=== PATIENT | male | born 1965 | race Caucasian/White ===

== ENCOUNTER 2017-01-07 07:35 | Inpatient (IN) | payer OTHER ==
[~2017-01-07] VITALS: Ht 172.7 cm; Wt 111.4 kg
[~2017-01-07 07:35] MED LIST: CeFAZolin 1 GM/DEXTROSE 50 ML IV ONE; CeFAZolin 2 GM/DEXTROSE 50 ML IV ONE; IBUP-2070 PO; RINGERS SOLUTION,LACTATED 1,000 ML IV ONE; SODIUM CHLORIDE 0.9% 1,000 ML IV ONE
[2017-01-07] MEDS ORDERED: RINGERS SOLUTION,LACTATED 1,000 ML IV ONE ×2 (07:40→11:32)
[2017-01-07 08:15] LABS: BASOPHILS # (AUTO) 0.03 K/uL (0.00-0.20); BASOPHILS % (AUTO) 0.3 % (0.0-2.0); EOSINOPHILS # (AUTO) 0.16 K/uL (0.00-0.70); EOSINOPHILS % (AUTO) 1.56 % (1.0-6.0); HEMATOCRIT 44.6 % (41-53); HEMOGLOBIN 15.3 g/dL (13.5-17.5); LYMPHOCYTES # (AUTO) 2.1 K/uL (1.0-4.8); LYMPHOCYTES % (AUTO) 19.9 % (22.0-44.0); MEAN CORPUSCULAR HEMOGLOBIN 31.6 pg (26.0-34.0); MEAN CORPUSCULAR HGB CONC 34.3 G/dL (31.0-37.0); MEAN CORPUSCULAR VOLUME 92 fL (80-100); MONOCYTES # (AUTO) 0.9 K/uL (0.1-1.0); MONOCYTES % (AUTO) 9.1 % (2.0-9.0); NEUTROPHILS # (AUTO) 7.1 K/uL (1.8-7.7); NEUTROPHILS % (AUTO) 69.2 % (40.0-70.0); PLATELET COUNT (AUTO) 251 K/uL (150-450); RED BLOOD CELL COUNT(AUTO) 4.84 MIL/uL (4.50-5.90); RED CELL DISTRIBUTION WIDTH 13.7 % (11.5-14.5); WHITE BLOOD COUNT (AUTO) 10.3 K/uL (4.5-11.0)
[2017-01-07] MEDS ORDERED: CeFAZolin 1 GM/DEXTROSE 50 ML IV ONE (08:23)
[2017-01-07 08:24] LABS: ANION GAP 7 mmol/L (8-16); CALCIUM, TOTAL 8.4 mg/dL (8.8-10.5); CARBON DIOXIDE 25 mmol/L (22-29); CHLORIDE 106 mmol/L (98-107); CREATININE 0.89 mg/dL (0.60-1.30); GLOMERULAR FILTR. RATE CALC > 60 mL/min (>60); POTASSIUM 4.1 mmol/L (3.5-5.1); SODIUM SERUM 138 mmol/L (136-145); UREA NITROGEN, BLOOD 11 mg/dL (7-18)
[2017-01-07 08:31] LABS: PROTHROMBIN TIME 10.1 SEC (9.4-11.6)
[2017-01-07] MEDS ORDERED: ACETAMINOPHEN 1000 MG/ISO-OSM 100 ML IV ONE (09:15)
[2017-01-07] MEDS ORDERED: BENZOCAINE/MENTHOL LOZENGE [8 LOZENGES/PACKET] PO PRN (10:00)
[2017-01-07] MEDS ORDERED: DiphenhydrAMINE HCL 50 MG/ML VIAL IVP PRN (10:00)
[2017-01-07] MEDS ORDERED: ONDANSETRON HCL 4 MG/2 ML VIAL IVP PRN ×2 (10:00→10:30)
[2017-01-07] MEDS ORDERED: ZOLPIDEM TARTRATE 10 MG TABLET PO PRN (10:00)
[2017-01-07] MEDS ORDERED: MEPERIDINE-PF 25 MG/ML SYRINGE IVP PRN (10:30)
[2017-01-07] MEDS ORDERED: HYDROmorphone 2 MG/ML SYRINGE IVP PRN (10:30)
[2017-01-07] MEDS ORDERED: FentaNYL CITRATE-PF 100 MCG/2 ML VIAL IVP PRN (10:30)
[2017-01-07] MEDS ORDERED: PROMETHAZINE HCL 25 MG/ML VIAL IM PRN (10:30)
[2017-01-07] MEDS ORDERED: MORPHINE SULFATE 4 MG/ML SYRINGE IVP ONE (12:00)
[2017-01-07] MEDS ORDERED: DEXAMETHASONE SOD PHOS 4 MG/ML VIAL IVP ONE (12:00)
[2017-01-07] MEDS ORDERED: ONDANSETRON HCL 4 MG/2 ML VIAL IVP ONE (12:00)
[2017-01-07] MEDS ORDERED: PROPOFOL 1% 20 ML VIAL IVP ONE (12:00)
[2017-01-07] MEDS ORDERED: FentaNYL CITRATE-PF 100 MCG/2 ML VIAL IV ONE (12:00)
[2017-01-07] MEDS ORDERED: LIDOCAINE HCL/PF 2% 5 ML VIAL INJ ONE (12:00)
[2017-01-07] MEDS ORDERED: 0.9% SODIUM CHLORIDE 10 ML VIAL IVP ONE (12:00)
[2017-01-07] MEDS ORDERED: METOPROLOL TARTRATE 5 MG/5 ML VIAL IVP ONE (12:00)
[2017-01-07] MEDS ORDERED: KETAMINE HCL 50 MG/ML 10 ML VIAL IVP ONE (12:00)
[2017-01-07] MEDS ORDERED: EPHEDrine SULFATE 50 MG/ML VIAL IM ONE (12:00)
[2017-01-07] MEDS ORDERED: MIDAZOLAM HCL 2 MG/2 ML VIAL IVP ONE (12:00)
[2017-01-07] MEDS ORDERED: ROCURONIUM BROMIDE 10 MG/ML 5 ML VIAL IVP ONE (12:00)
[2017-01-07] MEDS ORDERED: SUCCINYLCHOLINE CHLORIDE 20 MG/ML 10 ML VIAL IVP ONE (12:00)
[2017-01-07 13:50] VITALS: BP 150/95
[2017-01-07] MEDS: HYDROmorphone 2 MG/ML SYRINGE IVP PRN ×3 (14:39→23:46)
[2017-01-07 16:07] VITALS: BP 156/102
[2017-01-07] MEDS: ACETAMINOPHEN 1000 MG/ISO-OSM 100 ML IV SCH ×2 (16:14→21:43)
[2017-01-07 16:19] VITALS: BP 143/75
[2017-01-07] MEDS: CYCLOBENZAPRINE HCL 10 MG TABLET PO PRN (16:35)
[2017-01-07] MEDS: DOCUSATE SODIUM 100 MG CAPSULE PO SCH (19:46)
[2017-01-07 20:00] VITALS: BP 164/108
[2017-01-07] MEDS: OXYGEN THERAPY IH SCH (20:00)
[2017-01-07 21:48] VITALS: BP_SYST 14; BP_SYST 141; BP_DIAS 85
[2017-01-07 23:50] VITALS: BP 142/85
[2017-01-08] MEDS: ACETAMINOPHEN 1000 MG/ISO-OSM 100 ML IV SCH (04:06)
[2017-01-08] MEDS: CYCLOBENZAPRINE HCL 10 MG TABLET PO PRN (04:06)
[2017-01-08 04:13] VITALS: BP 130/80
[2017-01-08] MEDS ORDERED: INFLUENZA VIRUS VACCINE QVS 2017-18 (3YR+)/PF 60 MCG/0.5 ML SYRINGE IM ONE (04:45)
[2017-01-08] MEDS: HYDROmorphone 2 MG/ML SYRINGE IVP PRN (05:46)
[2017-01-08 08:00] VITALS: BP 154/94
[2017-01-08] MEDS: OXYGEN THERAPY IH SCH (08:00)
[2017-01-08] MEDS: DOCUSATE SODIUM 100 MG CAPSULE PO SCH (08:35)
[2017-01-08] MEDS ORDERED: OxyCODONE HCL/ACETAMINOPHEN 10-325 MG TABLET PO PRN (10:00)
[2017-01-08 12:00] VITALS: BP 152/90
== END 2017-01-08 12:50 | disposition home or self-care (01) | DRG 472 ==
LOC: 4E 07:35
PROVIDERS: ADMIT Orthopaedic Surgery Orthopaedic Surgery of the Spine; ATTEND Orthopaedic Surgery Orthopaedic Surgery of the Spine
PROC: 03QY0ZZ Repair Upper Artery, Open Approach (ICD-10-PCS; 2017-01-07)
PROC: 0RB30ZZ Excision of Cervical Vertebral Disc, Open Approach (ICD-10-PCS; 2017-01-07)
PROC: 0RG10A0 Fusion of Cervical Vertebral Joint with Interbody Fusion Device, Anterior Approach, Anterior Column, Open Approach (ICD-10-PCS; principal; 2017-01-07 10:13)
DX: M48.02 Spinal stenosis, cervical region (principal); I97.620 Postprocedural hemorrhage of a circulatory system organ or structure following other procedure; E66.3 Overweight; R58 Hemorrhage, not elsewhere classified; M54.12 Radiculopathy, cervical region; G47.33 Obstructive sleep apnea (adult) (pediatric); Z68.37 Body mass index [BMI] 37.0-37.9, adult; Y83.8 Other surgical procedures as the cause of abnormal reaction of the patient, or of later complication, without mention of misadventure at the time of the procedure; Y92.89 Other specified places as the place of occurrence of the external cause
CPT/HCPCS: 87081; 93005; 94760; 97161; 97165; 97535; C1713; J0131; J0330; J0690; J1100; J1170; J2250; J2270; J2405; J2704; J3010; J3490; J7120

== ENCOUNTER 2017-02-15 06:26 | Inpatient (IN) | payer OTHER ==
[~2017-02-15] VITALS: Ht 172.7 cm; Wt 107.7 kg
[~2017-02-15 06:26] MED LIST changes: -CeFAZolin 1 GM/DEXTROSE 50 ML IV ONE; -IBUP-2070 PO; -SODIUM CHLORIDE 0.9% 1,000 ML IV ONE
[2017-02-15] MEDS ORDERED: HYDROmorphone 2 MG/ML SYRINGE IVP PRN (06:30)
[2017-02-15] MEDS ORDERED: ZOLPIDEM TARTRATE 5 MG TABLET PO PRN (06:30)
[2017-02-15] MEDS ORDERED: MEPERIDINE-PF 25 MG/ML SYRINGE IVP PRN (06:30)
[2017-02-15] MEDS ORDERED: PROMETHAZINE HCL 25 MG/ML VIAL IM PRN (06:30)
[2017-02-15] MEDS ORDERED: BUPIVACAINE LIPOSOME/PF 1.3%-13.3MG/ML SUSPENSION 10 ML VIAL INJ ONE (06:30)
[2017-02-15] MEDS ORDERED: ONDANSETRON HCL 4 MG/2 ML VIAL IVP PRN (06:30)
[2017-02-15] MEDS ORDERED: FentaNYL CITRATE-PF 100 MCG/2 ML VIAL IVP PRN (06:30)
[2017-02-15] MEDS ORDERED: CYCLOBENZAPRINE HCL 10 MG TABLET PO PRN (06:30)
[2017-02-15] MEDS ORDERED: ACETAMINOPHEN 1000 MG/ISO-OSM 100 ML IV ONE (06:45)
[2017-02-15 06:49] LABS: BASOPHILS # (AUTO) 0.09 K/uL (0.00-0.20); EOSINOPHILS # (AUTO) 0.15 K/uL (0.00-0.70); EOSINOPHILS % (AUTO) 1.78 % (1.0-6.0); HEMATOCRIT 46.5 % (41-53); HEMOGLOBIN 15.6 g/dL (13.5-17.5); LYMPHOCYTES # (AUTO) 2.2 K/uL (1.0-4.8); LYMPHOCYTES % (AUTO) 25.8 % (22.0-44.0); MEAN CORPUSCULAR HGB CONC 33.5 G/dL (31.0-37.0); MEAN CORPUSCULAR VOLUME 92 fL (80-100); MONOCYTES # (AUTO) 0.8 K/uL (0.1-1.0); MONOCYTES % (AUTO) 9.7 % (2.0-9.0); NEUTROPHILS # (AUTO) 5.3 K/uL (1.8-7.7); NEUTROPHILS % (AUTO) 61.7 % (40.0-70.0); PLATELET COUNT (AUTO) 279 K/uL (150-450); RED BLOOD CELL COUNT(AUTO) 5.03 MIL/uL (4.50-5.90); RED CELL DISTRIBUTION WIDTH 14.1 % (11.5-14.5); WHITE BLOOD COUNT (AUTO) 8.6 K/uL (4.5-11.0)
[2017-02-15] MEDS: ACETAMINOPHEN 1000 MG/ISO-OSM 100 ML IV SCH ×3 (06:49→18:43)
[2017-02-15 07:00] LABS: PROTHROMBIN TIME 10.3 SEC (9.4-11.6)
[2017-02-15] MEDS ORDERED: CeFAZolin 2 GM/DEXTROSE 50 ML IV ONE (07:00)
[2017-02-15 07:07] LABS: ANION GAP 8 mmol/L (8-16); CALCIUM, TOTAL 8.9 mg/dL (8.8-10.5); CARBON DIOXIDE 27 mmol/L (22-29); CHLORIDE 104 mmol/L (98-107); CREATININE 0.91 mg/dL (0.60-1.30); GLOMERULAR FILTR. RATE CALC > 60 mL/min (>60); POTASSIUM 4.1 mmol/L (3.5-5.1); SODIUM SERUM 139 mmol/L (136-145); UREA NITROGEN, BLOOD 14 mg/dL (7-18)
[2017-02-15 07:13] LABS: ALANINE AMINOTRANSFERASE 35 U/L (12-78); ALBUMIN 3.8 g/dL (3.4-5.0); ASPARTATE AMINOTRANSFERASE 16 U/L (15-37); BILIRUBIN,TOTAL 0.7 mg/dL (0.1-1.0)
[2017-02-15] MEDS ORDERED: DiphenhydrAMINE HCL 50 MG/ML VIAL IVP PRN (07:45)
[2017-02-15] MEDS ORDERED: DEXAMETHASONE SOD PHOS 4 MG/ML VIAL IVP PRN (07:45)
[2017-02-15] MEDS ORDERED: ZOLPIDEM TARTRATE 10 MG TABLET PO PRN (07:45)
[2017-02-15] MEDS ORDERED: BENZOCAINE/MENTHOL LOZENGE [8 LOZENGES/PACKET] PO PRN (07:45)
[2017-02-15 09:50] VITALS: BP 143/96
[2017-02-15] MEDS: HYDROmorphone 2 MG/ML SYRINGE IVP PRN ×4 (09:57→23:30)
[2017-02-15] MEDS ORDERED: BUPIVACAINE HCL/PF 0.5% 30 ML VIAL ONE (10:08)
[2017-02-15 11:45] VITALS: BP 123/88
[2017-02-15] MEDS ORDERED: MIDAZOLAM HCL 2 MG/2 ML VIAL IVP ONE (12:00)
[2017-02-15] MEDS ORDERED: FentaNYL CITRATE-PF 100 MCG/2 ML VIAL IVP ONE (12:00)
[2017-02-15] MEDS ORDERED: PROPOFOL 1% 20 ML VIAL IVP ONE (12:00)
[2017-02-15] MEDS ORDERED: GLYCOPYRROLATE 0.2 MG/ML VIAL IM ONE (12:00)
[2017-02-15] MEDS ORDERED: SUCCINYLCHOLINE CHLORIDE 20 MG/ML 10 ML VIAL IVP ONE (12:00)
[2017-02-15] MEDS ORDERED: ONDANSETRON HCL 4 MG/2 ML VIAL IVP ONE (12:00)
[2017-02-15] MEDS ORDERED: LIDOCAINE HCL/PF 2% 5 ML SYRINGE IVP ONE (12:00)
[2017-02-15] MEDS ORDERED: ROCURONIUM BROMIDE 10 MG/ML 5 ML VIAL IVP ONE (12:00)
[2017-02-15] MEDS ORDERED: NEOSTIGMINE METHYLSULFATE 1 MG/ML 10 ML VIAL IVP ONE (12:00)
[2017-02-15] MEDS ORDERED: HYDROmorphone 2 MG/ML SYRINGE IVP ONE (12:00)
[2017-02-15] MEDS ORDERED: DEXAMETHASONE SOD PHOS 4 MG/ML VIAL IVP ONE (12:00)
[2017-02-15] MEDS: OXYGEN THERAPY IH SCH ×2 (13:22→20:00)
[2017-02-15] MEDS: DOCUSATE SODIUM 100 MG CAPSULE PO SCH ×2 (13:24→21:00)
[2017-02-15] MEDS ORDERED: SODIUM CHLORIDE 0.9% 50 ML ONE (14:35)
[2017-02-15] MEDS ORDERED: SODIUM CHLORIDE 0.9% 500 ML IV ONE (15:03)
[2017-02-15 15:39] VITALS: BP 143/85
[2017-02-15 20:00] VITALS: BP 124/78
[2017-02-15 23:29] VITALS: BP 136/84
[2017-02-16] MEDS: ACETAMINOPHEN 1000 MG/ISO-OSM 100 ML IV SCH ×2 (00:04→07:46)
[2017-02-16] MEDS: HYDROmorphone 2 MG/ML SYRINGE IVP PRN ×3 (03:01→11:20)
[2017-02-16 04:11] VITALS: BP 128/80
[2017-02-16] MEDS: DOCUSATE SODIUM 100 MG CAPSULE PO SCH (07:47)
[2017-02-16 07:55] VITALS: BP 133/92
[2017-02-16] MEDS: OXYGEN THERAPY IH SCH (08:00)
[2017-02-16 11:34] VITALS: BP 133/84
[2017-02-16] MEDS ORDERED: OxyCODONE HCL/ACETAMINOPHEN 10-325 MG TABLET PO PRN (13:00)
== END 2017-02-16 11:30 | disposition home or self-care (01) | DRG 460 ==
LOC: 4E 06:26 → 6N 10:58
PROVIDERS: ADMIT Orthopaedic Surgery Orthopaedic Surgery of the Spine; ATTEND Orthopaedic Surgery Orthopaedic Surgery of the Spine
PROC: 0SG30A0 Fusion of Lumbosacral Joint with Interbody Fusion Device, Anterior Approach, Anterior Column, Open Approach (ICD-10-PCS; principal; 2017-02-15 08:00)
DX: M51.37 Other intervertebral disc degeneration, lumbosacral region (principal)
CPT/HCPCS: 86850; 86900; 86901; 87081; 97161; 97165; C1713; J0131; J0330; J0690; J1100; J1170; J2250; J2405; J2704; J3010; J3490; J7040; J7050; J7120

== ENCOUNTER 2018-02-14 06:01 | Inpatient (IN) | payer OTHER ==
[~2018-02-14] VITALS: Ht 170.2 cm; Wt 100.0 kg
[2018-02-14 06:52] LABS: BASOPHILS % (AUTO) 0.7 % (0.0-2.0); HEMATOCRIT 45.8 % (41-53); LYMPHOCYTES # (AUTO) 3.4 K/uL (1.0-4.8); LYMPHOCYTES % (AUTO) 32.5 % (22.0-44.0); MEAN CORPUSCULAR HEMOGLOBIN 32.4 pg (26.0-34.0); MEAN CORPUSCULAR HGB CONC 34.9 G/dL (31.0-37.0); MEAN CORPUSCULAR VOLUME 93 fL (80-100); MONOCYTES # (AUTO) 1.1 K/uL (0.1-1.0); MONOCYTES % (AUTO) 10.9 % (2.0-9.0); NEUTROPHILS # (AUTO) 5.5 K/uL (1.8-7.7); NEUTROPHILS % (AUTO) 52.9 % (40.0-70.0); PLATELET COUNT (AUTO) 334 K/uL (150-450); RED BLOOD CELL COUNT(AUTO) 4.93 MIL/uL (4.50-5.90); RED CELL DISTRIBUTION WIDTH 13.2 % (11.5-14.5)
[2018-02-14] MEDS ORDERED: BUPIVACAINE HCL/PF 0.5% 30 ML VIAL ONE ×2 (06:58→08:26)
[2018-02-14] MEDS ORDERED: VANCOMYCIN HCL 1 GM/VIAL ONE (06:58)
[2018-02-14 07:02] LABS: ANION GAP 7 mmol/L (8-16); CALCIUM, TOTAL 8.4 mg/dL (8.8-10.5); CARBON DIOXIDE 29 mmol/L (22-29); CHLORIDE 104 mmol/L (98-107); CREATININE 0.76 mg/dL (0.60-1.30); GLOMERULAR FILTR. RATE CALC > 60 mL/min (>60); GLUCOSE,RANDOM 116 mg/dL (70-110); POTASSIUM 3.9 mmol/L (3.5-5.1); SODIUM SERUM 140 mmol/L (136-145); UREA NITROGEN, BLOOD 14 mg/dL (7-18)
[2018-02-14 07:08] LABS: ALANINE AMINOTRANSFERASE 40 U/L (12-78); ALBUMIN 3.3 g/dL (3.4-5.0); ALKALINE PHOSPHATASE 108 U/L (46-116); ASPARTATE AMINOTRANSFERASE 26 U/L (15-37); BILIRUBIN,TOTAL 0.4 mg/dL (0.1-1.0); TOTAL PROTEIN, SERUM 7.5 g/dL (6.4-8.2)
[2018-02-14] MEDS ORDERED: BUPIVACAINE LIPOSOME/PF 1.3%-13.3MG/ML SUSPENSION 10 ML VIAL INJ ONE (08:00)
[2018-02-14] MEDS ORDERED: ZOLPIDEM TARTRATE 10 MG TABLET PO PRN (08:15)
[2018-02-14] MEDS ORDERED: DiphenhydrAMINE HCL 50 MG/ML VIAL IVP PRN (08:15)
[2018-02-14] MEDS ORDERED: MAG HYDROX/AL HYDROX/SIMETH 30 ML SUSP UDCUP PO PRN (08:15)
[2018-02-14] MEDS ORDERED: BENZOCAINE/MENTHOL LOZENGE PO PRN (08:15)
[2018-02-14] MEDS ORDERED: FentaNYL CITRATE-PF 100 MCG/2 ML VIAL IVP PRN (08:45)
[2018-02-14] MEDS ORDERED: MEPERIDINE-PF 25 MG/ML VIAL IVP PRN (08:45)
[2018-02-14] MEDS ORDERED: ONDANSETRON HCL 4 MG/2 ML VIAL IVP PRN (08:45)
[2018-02-14] MEDS ORDERED: HYDROmorphone 2 MG/ML SYRINGE IVP PRN (08:45)
[2018-02-14] MEDS ORDERED: HYDROmorphone 2 MG/ML SYRINGE ONE ×2 (11:10→11:18)
[2018-02-14] MEDS ORDERED: ACETAMINOPHEN 1000 MG/ISO-OSM 100 ML IV STA (11:15)
[2018-02-14] MEDS ORDERED: ACETAMINOPHEN 1000 MG/ISO-OSM 100 ML IV ONE (11:15)
[2018-02-14] MEDS ORDERED: HYDROmorphone 2 MG/ML SYRINGE IVP ONE ×2 (11:30→12:00)
[2018-02-14] MEDS ORDERED: PROPOFOL 1% 20 ML VIAL IVP ONE (12:00)
[2018-02-14] MEDS ORDERED: ROCURONIUM BROMIDE 10 MG/ML 5 ML VIAL IVP ONE (12:00)
[2018-02-14] MEDS ORDERED: SUCCINYLCHOLINE CHLORIDE 20 MG/ML 10 ML VIAL IVP ONE (12:00)
[2018-02-14] MEDS ORDERED: MIDAZOLAM HCL 2 MG/2 ML VIAL IVP ONE (12:00)
[2018-02-14] MEDS ORDERED: EPHEDrine SULFATE 50 MG/ML VIAL IM ONE (12:00)
[2018-02-14] MEDS ORDERED: FentaNYL CITRATE-PF 100 MCG/2 ML VIAL IVP ONE (12:00)
[2018-02-14] MEDS ORDERED: DEXAMETHASONE SOD PHOS 4 MG/ML VIAL IVP ONE (12:00)
[2018-02-14] MEDS ORDERED: ESMOLOL HCL 10 MG/ML 10 ML VIAL IVP ONE (12:00)
[2018-02-14] MEDS ORDERED: ONDANSETRON HCL 4 MG/2 ML VIAL IVP ONE (12:00)
[2018-02-14] MEDS ORDERED: 0.9% SODIUM CHLORIDE 10 ML VIAL IVP ONE (12:00)
[2018-02-14] MEDS: DOCUSATE SODIUM 100 MG CAPSULE PO SCH ×2 (12:28→20:02)
[2018-02-14] MEDS: HYDROmorphone 2 MG/ML SYRINGE IVP PRN ×4 (14:16→22:43)
[2018-02-14 14:19] VITALS: BP 142/82
[2018-02-14] MEDS: ACETAMINOPHEN 1000 MG/ISO-OSM 100 ML IV SCH ×2 (15:20→19:08)
[2018-02-14 15:23] VITALS: BP 140/80
[2018-02-14] MEDS ORDERED: VANCOMYCIN HCL 1 GM/D5% WATER 200 ML IV SCH (20:00)
[2018-02-14 20:07] VITALS: BP 124/80
[2018-02-14 23:34] VITALS: BP 132/79
[2018-02-15] MEDS: HYDROmorphone 2 MG/ML SYRINGE IVP PRN ×8 (01:01→22:23)
[2018-02-15] MEDS: ACETAMINOPHEN 1000 MG/ISO-OSM 100 ML IV SCH ×2 (01:02→18:04)
[2018-02-15] MEDS ORDERED: SODIUM CHLORIDE 0.9% 500 ML IV ONE (01:05)
[2018-02-15] MEDS: CYCLOBENZAPRINE HCL 10 MG TABLET PO PRN ×2 (03:22→14:49)
[2018-02-15 04:32] VITALS: BP 131/81
[2018-02-15] MEDS: OxyCODONE HCL 10 MG IR TABLET PO PRN ×3 (05:36→19:58)
[2018-02-15 07:25] VITALS: BP 141/85
[2018-02-15] MEDS: OXYGEN THERAPY IH SCH ×2 (08:00→20:00)
[2018-02-15] MEDS: DOCUSATE SODIUM 100 MG CAPSULE PO SCH ×2 (09:49→19:57)
[2018-02-15 11:13] VITALS: BP 134/79
[2018-02-15] MEDS ORDERED: *CLINICAL-RX DOSING [ENTER DRUG IN COMMENTS] CLINICAL ONE (12:30)
[2018-02-15] MEDS ORDERED: MethylPREDNISolone 4 MG TABLET PO SCH (12:30)
[2018-02-15] MEDS: MethylPREDNISolone 4 MG TABLET PO SCH ×3 (13:19→19:58)
[2018-02-15 15:32] VITALS: BP 159/99
[2018-02-15 19:20] VITALS: BP 144/98
[2018-02-15 23:22] VITALS: BP 129/76
[2018-02-16] MEDS: HYDROmorphone 2 MG/ML SYRINGE IVP PRN ×10 (00:54→23:55)
[2018-02-16] MEDS: OxyCODONE HCL 10 MG IR TABLET PO PRN ×2 (02:09→17:30)
[2018-02-16] MEDS: CYCLOBENZAPRINE HCL 10 MG TABLET PO PRN ×2 (02:51→14:03)
[2018-02-16] MEDS: ZOLPIDEM TARTRATE 10 MG TABLET PO PRN ×2 (03:27→23:54)
[2018-02-16 03:35] VITALS: BP 160/102
[2018-02-16] MEDS: MethylPREDNISolone 4 MG TABLET PO SCH ×4 (05:49→20:58)
[2018-02-16 09:00] VITALS: BP 145/97
[2018-02-16] MEDS: DOCUSATE SODIUM 100 MG CAPSULE PO SCH ×2 (09:01→20:58)
[2018-02-16 11:15] VITALS: BP 141/92
[2018-02-16 15:10] VITALS: BP 140/97
[2018-02-16 19:17] VITALS: BP 145/98
[2018-02-16 23:02] VITALS: BP 139/99
[2018-02-17] MEDS: ZOLPIDEM TARTRATE 10 MG TABLET PO PRN (00:30)
[2018-02-17] MEDS: OxyCODONE HCL 10 MG IR TABLET PO PRN ×2 (00:30→04:50)
[2018-02-17] MEDS: HYDROmorphone 2 MG/ML SYRINGE IVP PRN ×4 (03:45→11:40)
[2018-02-17 04:43] VITALS: BP 144/97
[2018-02-17] MEDS: MethylPREDNISolone 4 MG TABLET PO SCH (08:44)
[2018-02-17 08:50] VITALS: BP 133/78
[2018-02-17] MEDS: DOCUSATE SODIUM 100 MG CAPSULE PO SCH (08:52)
[2018-02-17] MEDS ORDERED: OXYC5TAB3 PO (09:51)
[2018-02-17] MEDS ORDERED: MethylPREDNISolone 4 MG TABLET PO SCH (21:00)
[2018-02-18] MEDS ORDERED: MethylPREDNISolone 4 MG TABLET PO SCH (12:30)
== END 2018-02-17 14:06 | disposition home or self-care (01) | DRG 460 ==
LOC: 4E 06:01 → 6N 08:44 → 4E 02-17 08:14
PROVIDERS: ADMIT Orthopaedic Surgery Orthopaedic Surgery of the Spine; ATTEND Orthopaedic Surgery Orthopaedic Surgery of the Spine
PROC: 0SG3071 Fusion of Lumbosacral Joint with Autologous Tissue Substitute, Posterior Approach, Posterior Column, Open Approach (ICD-10-PCS; principal; 2018-02-14 07:30)
DX: M43.17 Spondylolisthesis, lumbosacral region (principal); M48.061 Spinal stenosis, lumbar region without neurogenic claudication; M54.16 Radiculopathy, lumbar region; Z98.1 Arthrodesis status; Z28.21 Immunization not carried out because of patient refusal
CPT/HCPCS: 72131; 87081; 93005; 93971; 97116; 97162; 97530; C1713; G0238; G0378; J0131; J0330; J0690; J1100; J1170; J2250; J2405; J2704; J3010; J3370; J3490; J7040; J7120; J7509